=== PATIENT | female | born 1995 | race African-American/Black ===

== ENCOUNTER 2016-06-18 13:37 | Inpatient (IN) | payer OTHER ==
[~2016-06-18] VITALS: Ht 157.5 cm; Wt 68.9 kg
[2016-06-18] VITALS (12 sets, daily range): BP systolic 120–142; BP diastolic 57–93
[~2016-06-18 13:37] MED LIST: ALPRAZOLAM0.5 MG PO; AMITRIPTYLINE H10 MG PO; BACTRIM,SEPT1 TABLET PO; CHROMAGEN,1 CAPSULE PO; CIPRO500 MG PO; DIFLUCAN150 MG PO; DURICEF500 MG/5 M PO; ENDOCET 5-3251 EACH PO; EXCEDRIN MIGRA1 EAC3 PO; EXCEDRIN MIGRA1 EACH PO; EXCEDRIN1 TABLET PO; KEFLEX500 MG PO; LEXAPRO10 MG PO; LOMOTIL TABLET1 EACH PO; MACROBID100 MG PO; METRONIDAZOLE70 GM VG; MOBIC7.5 MG PO; MOTRIN600 MG PO; MOTRIN800 MG PO; Motrin PO; NAPROSYN500 MG PO; NEXPLANON68 MG SC; PERCOCET 5/31 TABLET PO; PROMETHAZINE HC25 M1 PO; PROZAC10 MG PO; PYRIDIUM100 MG PO; PYRIDIUM200 MG PO; SERTRALINE HCL50 MG PO; TRAMADOL HCL50 MG PO; ULTRAM50 MG PO; ZOFRAN4 MG PO; ZOLOFT50 MG PO
[2016-06-18] MEDS ORDERED: PRENATAL TABLE1 EAC3 PO (13:58)
[2016-06-18 14:37] LABS: EOSINOPHIL (%) 0.3 % (0-5); HEMATOCRIT 33.7 % (36.0-46.0); IMMATURE GRANULOCYTE (%) 1.6 % (0.0-0.7); IMMATURE GRANULOCYTE COUNT 0.2 K/uL; LYMPHOCYTE COUNT 2.4 K/uL (1.0-2.8); MCH 29.4 PG (29.0-34.0); MCHC 32.6 G/DL (30.0-36.0); MCV 90.1 FL (83-99); MEAN PLAT.VOLUME 10.9 uM^3 (9.5-12.4); MONOCYTE (%) 4.6 % (3-12); MONOCYTE COUNT 0.6 K/uL (0-0.8); NEUTROPHIL (%) 76.1 % (45-76); NEUTROPHIL COUNT 10.6 K/uL (1.8-6.4); PLATELET COUNT 253 K/uL (156-360); RBC DIS.WIDTH-CV 14.9 % (11.8-14.6); RBC DIS.WIDTH-SD 48.9 % (39-53); RED BLOOD COUNT 3.74 M/uL (3.80-5.20)
[2016-06-18] MEDS ORDERED: IBUPROFEN800 MG PO (17:23)
[2016-06-19 08:10] VITALS: BP 123/58
[2016-06-19 15:19] VITALS: BP 106/57
[2016-06-19 23:17] VITALS: BP 121/59
[2016-06-20 07:35] VITALS: BP 124/83
[2016-06-20 14:50] VITALS: BP 128/60
== END 2016-06-20 18:55 | disposition home or self-care (01) | DRG 775 ==
LOC: LDRP-OP 13:37 → 2WEST 13:38 → LDRP-OP 07-17 21:52
PROVIDERS: Advanced Practice Midwife
PROC: 10E0XZZ Delivery of Products of Conception, External Approach (ICD-10-PCS; principal; 2016-06-18)
DX: O42.02 Full-term premature rupture of membranes, onset of labor within 24 hours of rupture (principal); Z37.0 Single live birth; Z3A.40 40 weeks gestation of pregnancy
CPT/HCPCS: 85025; J0595; J7120

== ENCOUNTER 2016-11-12 12:53 | Emergency (ER) | payer OTHER ==
[~2016-11-12] VITALS: Ht 157.5 cm; Wt 63.6 kg
[~2016-11-12 12:53] MED LIST changes: +IBUPROFEN800 MG PO; +PRENATAL TABLE1 EAC3 PO
[2016-11-12 15:24] LABS: HEMATOCRIT 45.8 % (36.0-46.0); MCH 30.7 PG (29.0-34.0); MCHC 34.5 G/DL (30.0-36.0); MCV 88.9 FL (83-99); MEAN PLAT.VOLUME 10.1 uM^3 (9.5-12.4); PLATELET COUNT 308 K/uL (156-360); RBC DIS.WIDTH-CV 13.1 % (11.8-14.6); RBC DIS.WIDTH-SD 42.7 % (39-53); RED BLOOD COUNT 5.15 M/uL (3.80-5.20); WHITE BLOOD COUNT 9.9 K/uL (4.1-10.2)
[2016-11-12 15:32] LABS: ADD MIUA? YES; BILIRUBIN NEGATIVE; BLOOD LARGE; COLOR YELLOW ((YELLOW)); GLUCOSE (STRIP) NEGATIVE; KETONES NEGATIVE; LEUKOCYTES TRACE; NITRITE NEGATIVE; PROTEIN (STRIP) NEGATIVE; SPECIFIC GRAVITY 1.008 (1.000-1.030); UROBILINOGEN 0.2 MG/DL (0.2-1.0)
[2016-11-12 15:40] LABS: CHLORIDE 103 mEq/L (99-109); SODIUM 137 mEq/L (136-147)
[2016-11-12 15:42] LABS: GLUCOSE 80 mg/dL (70-99)
[2016-11-12 15:44] LABS: ANION GAP 12 MEQ/L (2-14); TOTAL BILIRUBIN 0.3 mg/dL (0.0-1.0)
[2016-11-12 15:46] LABS: ALKALINE PHOSPHATASE 132 IU/L (3-129); GFR ESTIMATE (CALCULATED) > 59 mL/min/
[2016-11-12 15:47] LABS: UREA NITROGEN (BUN) 12 mg/dL (9-23)
[2016-11-12 15:49] LABS: LIPASE 33 U/L (1.0-51.0)
[2016-11-12 15:56] LABS: QUANTITATIVE HCG < 4.0 MIU/ML
[2016-11-12 16:09] LABS: WHITE BLOOD CELLS 0-5 /HPF (0-5)
[2016-11-12 16:10] LABS: BACTERIA 2+ /HPF; EPITHELIAL CELLS 1+ /HPF; MUCUS NONE SEEN /LPF; UCUL ADDED? YES
[2016-11-12] MEDS ORDERED: KEFLEX500 MG PO (16:27)
[2016-11-12] MEDS ORDERED: NAPROSYN500 MG PO (16:27)
[2016-11-12] MEDS ORDERED: ZOFRAN ODT4 MG PO (16:27)
[2016-11-12 16:55] VITALS: BP 134/92
== END 2016-11-12 16:57 | disposition home or self-care (01) ==
LOC: EME 12:53
PROVIDERS: Nurse Practitioner Family
DX: N39.0 Urinary tract infection, site not specified (principal); S39.012A Strain of muscle, fascia and tendon of lower back, initial encounter; X50.9XXA Other and unspecified overexertion or strenuous movements or postures, initial encounter; Y93.E6 Activity, residential relocation; R51 Headache; R11.2 Nausea with vomiting, unspecified; Z87.442 Personal history of urinary calculi
CPT/HCPCS: 80053; 81003; 83690; 84702; 85027; 87086; 99281; 99284

== ENCOUNTER 2016-11-13 15:10 | Emergency (ER) | payer OTHER ==
[~2016-11-13] VITALS: Ht 162.6 cm; Wt 65.2 kg
[~2016-11-13 15:10] MED LIST changes: +ZOFRAN ODT4 MG PO
[2016-11-13 15:35] LABS: POINT-OF-CARE METER ID UU13113702
[2016-11-13 15:37] LABS: EOSINOPHIL (%) 0.2 % (0-5); HEMATOCRIT 39.1 % (36.0-46.0); IMMATURE GRANULOCYTE (%) 0.2 % (0.0-0.7); INSTRUMENT ABS NEUTROPHIL CT 9.6 K/uL; MCHC 34.3 G/DL (30.0-36.0); MCV 87.7 FL (83-99); MEAN PLAT.VOLUME 9.9 uM^3 (9.5-12.4); MONOCYTE (%) 4.3 % (3-12); MONOCYTE COUNT 0.5 K/uL (0-0.8); NEUTROPHIL (%) 78.8 % (45-76); NEUTROPHIL COUNT 9.6 K/uL (1.8-6.4); PLATELET COUNT 308 K/uL (156-360); RBC DIS.WIDTH-CV 13.1 % (11.8-14.6); RBC DIS.WIDTH-SD 42.1 % (39-53); RED BLOOD COUNT 4.46 M/uL (3.80-5.20); WHITE BLOOD COUNT 12.2 K/uL (4.1-10.2)
[2016-11-13 15:42] LABS: CHLORIDE 103 mEq/L (99-109); POTASSIUM 3.4 mEq/L (3.7-5.4); SODIUM 135 mEq/L (136-147)
[2016-11-13 15:44] LABS: GLUCOSE 98 mg/dL (70-99)
[2016-11-13 15:45] LABS: ANION GAP 11 MEQ/L (2-14)
[2016-11-13 15:47] LABS: SERUM ETHYL ALCOHOL < 10 mg/dL
[2016-11-13 15:48] LABS: GFR ESTIMATE (CALCULATED) > 59 mL/min/
[2016-11-13 15:49] LABS: UREA NITROGEN (BUN) 12 mg/dL (9-23)
[2016-11-13 15:52] LABS: TROP-I INTERPRETATION NEGATIVE; TROPONIN-I < 0.01 ng/mL (0.0-0.30)
[2016-11-13 16:33] LABS: ADD MIUA? YES; BILIRUBIN NEGATIVE; BLOOD LARGE; COLOR AMBER ((YELLOW)); GLUCOSE (STRIP) NEGATIVE; INTERNAL CONTROL VALID? YES; KETONES 20; LEUKOCYTES SMALL; NITRITE NEGATIVE; PROTEIN (STRIP) 30; SPECIFIC GRAVITY 1.025 (1.000-1.030); UROBILINOGEN 0.2 MG/DL (0.2-1.0)
[2016-11-13 16:37] LABS: BACTERIA 1+ /HPF; EPITHELIAL CELLS 1+ /HPF; MUCUS TRACE /LPF; RED BLOOD CELLS 15-20 /HPF (0-5); UCUL ADDED? YES; WHITE BLOOD CELLS 20-30 /HPF (0-5)
[2016-11-13 16:43] LABS: ADD MEDTOX COMMENT Y; AMPHETAMINE NEGATIVE (500 ng/mL); BARBITURATES PRESUMPTIVE POSITIVE (200 ng/mL); BENZODIAZEPINES NEGATIVE (150 ng/mL); COCAINE NEGATIVE (150 ng/mL); INTERNAL CONTROLS VALID? YES; METHADONE NEGATIVE (200 ng/mL); METHAMPHETAMINE NEGATIVE (500 ng/mL); OPIATES (MORPHINE) PRESUMPTIVE POSITIVE (100 ng/mL); OXYCODONE NEGATIVE (100 ng/mL); PHENCYCLIDINE NEGATIVE (25 ng/mL); PROPOXYPHENE NEGATIVE (300 ng/mL); THC CANNABINOIDS NEGATIVE (50 ng/mL); TRICYCLIC ANTIDEPRESSANTS NEGATIVE (300 ng/mL)
[2016-11-13 18:13] VITALS: BP 117/78
== END 2016-11-13 18:15 | disposition home or self-care (01) ==
LOC: EME 15:10
PROVIDERS: Emergency Medicine
DX: R51 Headache (principal); F32.9 Major depressive disorder, single episode, unspecified; F41.9 Anxiety disorder, unspecified
CPT/HCPCS: 70450; 80048; 81003; 82948; 84484; 84703; 84999; 85025; 87086; 99281; 99285; G0480; J2765